=== PATIENT | male | born 1970 | race Caucasian/White ===

== ENCOUNTER 2017-08-24 09:33 | Emergency (ER) | payer OTHER ==
[2017-08-24 10:19] VITALS: BP 159/96; PULSE 63; RESP 16; TEMP 98
[2017-08-24] MEDS ORDERED: HYDROcodone/APAP 5-325MG 1 EACH TAB PO STA (10:57)
--- NOTE | 2017-08-24 11:00 | ED ---
ENT HPI - General Chief complaint: Dental/Oral Stated complaint: Tooth pain Time Seen by Provider: 08/24/17 10:46 Source: patient, RN notes reviewed Mode of arrival: ambulatory Limitations: no limitations - History of Present Illness Initial comments: 47-year-old male presents emergency Department chief complaint abdominal pain. Patient states started last day or so. Patient states his right upper aspect he was told with passive and he needed to have a root canal states that he had only fillings at that time. Patient states that he has appointment tomorrow morning with [facility]. Patient states been treated time ibuprofen he does get some relief for it comes back shortly after taking the medication. Denies fevers or chills. He does have mild swelling to the right side of the face. Denies any difficulty swallowing denies headache or dizziness at this time he did have slight symptoms couple days prior. - Related Data Previous Rx's Medication Instructions Recorded Hydrocodone/Acetaminophen [[place] 1 tab PO Q6HR PRN #20 tab 08/24/17 5-325] Ibuprofen [Motrin] 600 mg PO Q8HR PRN #30 tab 08/24/17 Penicillin V Potassium [Pen Vee K] 500 mg PO QID #40 tablet 08/24/17 Allergies Allergy/AdvReac Type Severity Reaction Status Date / Time No Known Allergies Allergy Verified 08/24/17 10:19 Review of Systems ROS Statement: Those systems with pertinent positive or pertinent negative responses have been documented in the HPI. ROS Other: All systems not noted in ROS Statement are negative. Past Medical History Past Medical History: No Reported History History of Any Multi-Drug Resistant Organisms: None Reported Past Surgical History: No Surgical Hx Reported Past Psychological History: No Psychological Hx Reported Smoking Status: Never smoker Past Alcohol Use History: Occasional Past Drug Use History: Marijuana General Exam Limitations: no limitations General appearance: alert, in no apparent distress Head exam: Present: atraumatic, normocephalic, normal inspection Eye exam: Present: normal appearance, PERRL, EOMI. Absent: scleral icterus, conjunctival injection, periorbital swelling ENT exam: Present: normal oropharynx, mucous membranes moist, TM's normal bilaterally, normal external ear exam. Absent: normal exam (Multiple fillings right upper aspect, no drainable abscess there is tenderness to the teeth the right upper aspect) Neck exam: Present: normal inspection, full ROM. Absent: tenderness, meningismus, lymphadenopathy Respiratory exam: Present: normal lung sounds bilaterally. Absent: respiratory distress, wheezes, rales, rhonchi, stridor Cardiovascular Exam: Present: regular rate, normal rhythm, normal heart sounds. Absent: systolic murmur, diastolic murmur, rubs, gallop, clicks Course Vital Signs 08/24/17 10:16 Temperature 98 F Pulse Rate 63 Respiratory 16 Rate Blood Pressure 159/96 O2 Sat by Pulse 99 Oximetry Medical Decision Making - Medical Decision Making 47-year-old male presented for dental pain. Patient we placed on antibiotics, anti-inflammatories and pain medication. Patient advised to see his dentist as scheduled appointment tomorrow. Patient agrees to plan return parameters were discussed. Disposition Clinical Impression: Dental caries, Pain, dental Disposition: HOME SELF-CARE Condition: Stable Instructions: Toothache (ED) Additional Instructions: Please return to the Emergency Department if symptoms worsen or any other concerns. Prescriptions: Hydrocodone/Acetaminophen [[place] 5-325] 1 tab PO Q6HR PRN #20 tab PRN Reason: Pain Ibuprofen [Motrin] 600 mg PO Q8HR PRN #30 tab PRN Reason: Pain Penicillin V Potassium [Pen Vee K] 500 mg PO QID #40 tablet Referrals: None,Stated [Primary Care Provider] - 1-2 days Time of Disposition: 11:00
== END 2017-08-24 11:26 | disposition home or self-care (01) ==
LOC: EC 09:33
DX: K02.9 Dental caries, unspecified (principal)
CPT/HCPCS: 99282

== ENCOUNTER 2020-07-20 10:04 | Day surgery (SDC) | payer OTHER ==
[2020-07-16 14:40] VITALS: BMI 31.2
[~2020-07-20 10:04] MED LIST: LACTATED RINGERS 1,000 ML IV SCH; LIDOCAINE 1% (10MG/ML) FOR IV START INTRADERMA PRN; MIDAZOLAM 2 MG/2 ML VIAL IV PRN
[2020-07-20 10:21] VITALS: TEMP 98.9
[2020-07-20] MEDS ORDERED: PROPOFOL 10 MG/ML 20 ML VIAL IV ONE (10:38)
[2020-07-20 11:08] VITALS: RESP 16
[2020-07-20 11:24] VITALS: BP 132/85; PULSE 81
--- NOTE | 2020-07-20 11:53 | P.PCN ---
Date of Procedure: 07/20/20 Description of Procedure: BRIEF HISTORY: Patient is a 50-year-old male presenting for esophagogastroduodenoscopy for evaluation of symptoms of GERD. Patient reports a long-standing history of reflux. Previously the patient was on Prilosec therapy with good control of symptoms. Currently is on famotidine and reports some breakthrough symptoms.. PROCEDURE PERFORMED: Esophagogastroduodenoscopy with biopsy. PREOPERATIVE DIAGNOSIS: GERD with esophagitis, reflux. ESTIMATED BLOOD LOSS: Minimal. IV sedation per anesthesia. PROCEDURE: After informed consent was obtained, the patient was brought into the endoscopy unit. IV sedation was administered by Anesthesia under continuous monitoring. Initially the Olympus GIF-190 video endoscope was inserted into the mouth. Esophagus intubated without any difficulty. It was gradually advanced into the stomach and duodenum and carefully examined. The bulb and the second part of the duodenum appeared normal, with biopsies taken. The scope at this time was withdrawn to the stomach, adequately insufflated with air, and upon careful examination, mucosa of the antrum, body, cardia and the fundus appeared normal, except for some mild scattered erythema in the antrum and body suggestive of mild gastritis with biopsies taken. The scope was then withdrawn into the esophagus. The GE junction was located at 38 cm from the incisors, with 2 cm hiatal hernia noted and biopsies taken of the GE junction. The esophagus appeared normal. There were no erosions or ulcerations seen and the patient tolerated the procedure well. IMPRESSION: 1. Mild gastritis. 2. Small hiatal hernia. 3. Biopsies of the duodenum, antrum and body and GE junction. RECOMMENDATIONS: The findings of this examination were discussed with the patient and his family. Okay to resume diet. Okay to resume medications. Await pathology from biopsies. GERD lifestyle modifications discussed.
== END 2020-07-20 11:50 | disposition home or self-care (01) ==
LOC: ORWHC2ENDO 10:04
PROVIDERS: ATTEND Internal Medicine
DX: K21.00 Gastro-esophageal reflux disease with esophagitis, without bleeding (principal); K29.50 Unspecified chronic gastritis without bleeding; K31.89 Other diseases of stomach and duodenum; K44.9 Diaphragmatic hernia without obstruction or gangrene; Z79.899 Other long term (current) drug therapy; Z79.890 Hormone replacement therapy; Z98.890 Other specified postprocedural states
CPT/HCPCS: 88305; 43239; J2704